=== PATIENT | female | born 1950 | race African-American/Black ===

== ENCOUNTER 2021-01-11 13:35 | Emergency (ER) | payer OTHER ==
[~2021-01-11] VITALS: Ht 165.1 cm; Wt 67.2 kg
[2021-01-11 14:56] LABS: CHLORIDE 106 mEq/L (98-107)
[2021-01-11 15:00] LABS: BASOPHILS % 0.4 % (0.0-2.0); EOSINOPHILS % 1.5 % (0.0-5.0); HEMATOCRIT. 29.2 % (36.0-48.0); HEMOGLOBIN. 9.6 g/dL (12.0-16.0); LYMPHOCYTES % 19.8 % (20.0-50.0); MEAN CORPUSCULAR HEMOGLOBIN 28.2 pg (28.0-32.0); MEAN CORPUSCULAR VOLUME 86.1 fL (81.0-99.0); NEUTROPHILS % 72.3 % (40.0-76.0); PLATELET 299 x1000/uL (130-400); RED BLOOD CELL COUNT 3.39 mill/uL (4.2-5.4); RED CELL DISTRIBUTION WIDTH 18.9 % (11.6-14.6)
[2021-01-11 15:02] LABS: ETHANOL BLOOD < 10 mg/dL
[2021-01-11 15:06] LABS: LDL CHOLESTEROL 102 mg/dL (5-100)
[2021-01-11] MEDS ORDERED: IOHEXOL-300 100 ML BOTTLE ONE (15:11)
[2021-01-11] MEDS ORDERED: IOHEXOL-350 100 ML BOTTLE ONE (15:12)
[2021-01-11 15:43] LABS: CLARITY URINE CLEAR (CLEAR); COLOR URINE YELLOW (YELLOW); KETONES URINE NEGATIVE (NEGATIVE); LEUKOCYTE ESTERASE URINE NEGATIVE (NEGATIVE); NITRITE URINE NEGATIVE (NEGATIVE); OCCULT BLOOD URINE NEGATIVE (NEGATIVE); PROTEIN URINE NEGATIVE (NEGATIVE); SPECIFIC GRAVITY URINE 1.031 (1.005-1.030); UROBILINOGEN URINE 0.2 E.U./dL (0.2-1.0)
[2021-01-11] MEDS ORDERED: ASPIRIN 325MG EC TABLET PO NR (15:45)
[2021-01-11 16:09] LABS: *AMPHETAMINES SCREEN URINE NEGATIVE (NEGATIVE); CANNABINOID URINE SCREEN NEGATIVE (NEGATIVE); METHADONE URINE SCREEN NEGATIVE (NEGATIVE); OPIATES URINE SCREEN NEGATIVE (NEGATIVE); PHENCYCLIDINE URINE SCREEN NEGATIVE (NEGATIVE)
[2021-01-11 16:10] LABS: *BARBITURATES SCREEN URINE NEGATIVE (NEGATIVE); *BENZODIAZEPINES SCREEN URINE NEGATIVE (NEGATIVE); *COCAINE SCREEN URINE NEGATIVE (NEGATIVE)
[2021-01-11] MEDS ORDERED: ASPIRIN 300MG SUPP PR ONE (19:45)
[2021-01-11 20:06] VITALS: BP 181/79
== END 2021-01-11 20:43 | disposition short-term general hospital (02) ==
LOC: ER 13:35 → EDBEDREQTM 16:10 → EDBEDREQSVC 16:10 → EDBEDREQ 16:10 → CANRESERV 16:26 → ENRESERV 16:26 → ER 20:43 → CANBEDREQ 22:05
DX: I63.9 Cerebral infarction, unspecified (principal); I11.9 Hypertensive heart disease without heart failure; E87.6 Hypokalemia; I77.89 Other specified disorders of arteries and arterioles; D64.9 Anemia, unspecified
CPT/HCPCS: 36415; 70450; 70496; 70498; 71045; 80053; 80305; 80320; 81003; 82962; 83721; 84484; 85025; 93005; 99285; Q9967; G0480